=== PATIENT | male | born 1955 | race Two or more races ===

== ENCOUNTER → 2022-08-26 09:25 | Outpatient (BNVA) | payer MEDICARE, SELFPAY | PROVIDERS: PCP Psychiatry & Neurology Neurology; Visit Provider Psychiatry & Neurology Neurology | DX: R25.8 Other abnormal involuntary movements (principal); R25.1 Tremor, unspecified; G47.33 Obstructive sleep apnea (adult) (pediatric); G47.52 REM sleep behavior disorder | CPT/HCPCS: 99202 ==